=== PATIENT | male | born 1960 | race Caucasian/White ===

== ENCOUNTER → 2017-05-18 | Outpatient (CLI) | payer OTHER | END | disposition home or self-care (01) | LOC: CDC 10:31 | DX: M54.16 Radiculopathy, lumbar region (principal); M99.03 Segmental and somatic dysfunction of lumbar region; I49.3 Ventricular premature depolarization | CPT/HCPCS: 93000 ==

== ENCOUNTER 2017-06-16 21:47 | Inpatient (IN) | payer OTHER ==
[~2017-06-16] VITALS: Ht 182.9 cm; Wt 127.4 kg
[~2017-06-16 21:47] MED LIST: AMBIEN10 MG PO; ASCORBIC ACID500 M3 PO; ASPIR 8181 M1 PO; BACLOFEN10 MG PO; CELEBREX200 MG PO; CYMBALTA30 MG PO; DAILY MULTIPLE1 EACH PO; GLIPIZIDE5 MG PO; METFORMIN HCL500 MG PO; MORPHINE SULFAT15 MG PO; NEURONTIN600 MG PO; NEXIUM40 MG PO; RAMIPRIL10 MG PO
[2017-06-17 05:51] VITALS: BP 125/78
[2017-06-17 06:22] LABS: POINT-OF-CARE METER ID UU14174212
[2017-06-17 10:22] LABS: POINT-OF-CARE METER ID UU13113675
[2017-06-17 16:52] LABS: POINT-OF-CARE METER ID UU13113675
[2017-06-17 18:19] VITALS: BP 136/75
[2017-06-17 19:09] VITALS: BP 127/70
[2017-06-17 21:22] LABS: POINT-OF-CARE METER ID UU14117124
[2017-06-17 23:17] VITALS: BP 119/58
[2017-06-18 03:09] VITALS: BP 107/55
[2017-06-18 07:21] VITALS: BP 126/69
[2017-06-18 11:00] VITALS: BP 135/71
[2017-06-18 11:47] LABS: POINT-OF-CARE METER ID UU14117124
[2017-06-18 16:38] VITALS: BP 106/65
[2017-06-18 16:43] LABS: POINT-OF-CARE METER ID UU14117124
[2017-06-18 19:29] VITALS: BP 127/68
[2017-06-18 21:29] LABS: POINT-OF-CARE METER ID UU14208753
[2017-06-18 23:49] VITALS: BP 119/58
[2017-06-19 03:56] VITALS: BP 122/57
[2017-06-19 06:19] LABS: POINT-OF-CARE METER ID UU14117124
[2017-06-19 08:04] VITALS: BP 120/68
[2017-06-19 11:34] LABS: POINT-OF-CARE METER ID UU14117124
[2017-06-19] MEDS ORDERED: BACLOFEN10 MG PO (15:00)
[2017-06-19 15:05] VITALS: BP 117/70
[2017-06-19] MEDS ORDERED: HYDROCODON-ACE1 EAC9 PO (15:05)
[2017-06-19] MEDS ORDERED: OXYCONTIN15 MG PO (15:26)
== END 2017-06-19 16:21 | disposition home or self-care (01) | DRG 460 ==
LOC: ENRESERV 21:47 → 3EAST 06-17 05:21 → 2SOUTH 06-17 05:21 → ENRESERV 06-17 16:26 → 3EAST 06-17 17:28
PROVIDERS: Neurological Surgery
DX: M51.16 Intervertebral disc disorders with radiculopathy, lumbar region (principal); M43.16 Spondylolisthesis, lumbar region; M48.061 Spinal stenosis, lumbar region without neurogenic claudication; M40.36 Flatback syndrome, lumbar region; I10 Essential (primary) hypertension; E11.9 Type 2 diabetes mellitus without complications; K21.9 Gastro-esophageal reflux disease without esophagitis; E78.5 Hyperlipidemia, unspecified; G47.30 Sleep apnea, unspecified; Z96.652 Presence of left artificial knee joint; Z86.73 Personal history of transient ischemic attack (TIA), and cerebral infarction without residual deficits; Z87.891 Personal history of nicotine dependence; Z79.82 Long term (current) use of aspirin
CPT/HCPCS: 72100; 76000; 82948; 86850; 86900; 86901; J0330; J0690; J1100; J1170; J2250; J2405; J2710; J3010; J3370; J3480